=== PATIENT | male | born 1940 | race Caucasian/White ===

== ENCOUNTER 2020-05-21 12:52 | Emergency (ER) | payer MEDICARE ==
[~2020-05-21] VITALS: Ht 177.8 cm; Wt 118.3 kg
[2020-05-21 13:08] VITALS: BP 167/98
== END 2020-05-21 14:59 | disposition home or self-care (01) ==
LOC: ED 14:37
DX: H92.01 Otalgia, right ear (principal); M79.89 Other specified soft tissue disorders; I10 Essential (primary) hypertension; I48.91 Unspecified atrial fibrillation
CPT/HCPCS: 99281